=== PATIENT | female | born 1935 | race Caucasian/White ===

== ENCOUNTER 2019-06-30 13:59 | Inpatient (IN) | payer MEDICARE, OTHER, SELFPAY ==
[2019-06-30] VITALS (16 sets, daily range): BP systolic 76–126; BP diastolic 36–65; PULSE 48–85; RESP 13–21; TEMP 34.4–34.9; O2SAT 94–100; BMI 22.3
--- NOTE | 2019-06-30 14:05 | ED_ITS ---
Entered by Urmila Hernández, acting as scribe for Shweta Overton MD, [facility] [place] HPI - Altered Mental Status General: Chief Complaint: Altered Mental Status Stated Complaint: abnormal labs Source: EMS Mode of arrival: EMS Limitations: altered mental status History of Present Illness: HPI narrative: 83 yo Female presents to ED from [facility] with complaint of altered mental status. Per retirement, patient has been having increased lethargy. custodial staff reports that the patient had labs done and the patient's sodium level is in the 170s. Pt is end stage dementia and is a DNR. MD complaint: altered mental status and decreased responsiveness Onset (ago): day(s) Consistency of symptoms: Getting Worse Context: unknown Associated symptoms: Reports no associated symptoms Treatments prior to arrival: IV fluid Review of Systems General: Reports: ROS unobtainable due to mental status Const: Reports: other (lethargy) [facility] ED PFSH: Medical History (Updated 06/30/19 @ 23:10 by Shweta Overton MD, [facility] [place]) AMS (altered mental status) Anxiety Atrial septal aneurysm Bipolar disorder CAD (coronary artery disease) CKD (chronic kidney disease) COPD (chronic obstructive pulmonary disease) Dementia Gait disorder GERD (gastroesophageal reflux disease) Humerus fracture Hyperlipidemia Hypertension Hypothyroid Osteoporosis Pulmonary hypertension Subclavian steal syndrome Vitamin D deficiency Surgical History (Updated 06/30/19 @ 20:54 by Kinza Naik MD) History of tonsillectomy Stented coronary artery Family History Other Cancer Diabetes Hypertension Social History Smoking and tobacco status: unknown if ever smoked Physical Exam Const: EXAM LIMITATIONS: altered mental status GENERAL APPEARANCE: lethargic, ill appearing and frail appearing NUTRITIONAL APPEARANCE: underweight ORIENTATION/CONSCIOUSNESS: Yes lethargic HENMT: COMMON NORMALS: normocephalic HEAD & SCALP: normocephalic Neck/C-Spine: OTHER: Neck contracture with her neck turned left Resp: COMMON NORMALS: normal respiratory effort, no use of accessory muscles and clear to auscultation bilaterally AUSCULTATION: clear to auscultation bilaterally Cardio: COMMON NORMALS: regular rhythm, S1 normal heart sound and S2 normal heart sound RATE: bradycardic RHYTHM: regular rhythm HEART SOUNDS: S1 normal and S2 normal Extremity: OTHER: contracture to all upper extremities Neuro: [facility] COM[facility] SCALE: GCS not evaluated COMMON NORMALS: moves all extremities SENSORIUM/ORIENTATION: Yes lethargic OTHER: 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 Naik, Hospitalist. She kindly accepted the patient to her service Time: 19:34 Consultation #2: Discussed with her brother who is her power of assistant district attorney. Explained how sick the patient is and and that she has a high likelihood of passing away due to this illness. Asked what her CODE STATUS is and he confirmed that she is a DNR, however he would still like all interventions prior to cardiac arrest performed for her. This includes pressors, ICU care, antibiotics and other medications to keep her alive. She is however not to have CPR, no intubation, no mechanical ventilation. Time: 14:15 Vital Signs: Vital signs: Vital Signs Temperature 94 F L 06/30/19 21:54 Pulse Rate 66 06/30/19 22:45 Respiratory Rate 14 06/30/19 22:45 Blood Pressure 82/52 06/30/19 22:45 Pulse Oximetry 96 06/30/19 22:45 MDM - Altered Mental Status MDM Narrative: Medical decision making narrative: 83-year-old female patient who is a retirement resident and was brought in today with abnormal labs. Her sodium was about 174, BUN in the 160s, creatinine about 5 in the retirement. She was therefore brought in here because she was altered. Evaluation here showed labs that were similar, patient is severely hyponatremic, with acute kidney injury and severe dehydration. The prognosis is grave. She was given half-normal saline, needed pressors secondary to significant hypotension. She is admitted to the intensive care unit for further evaluation and management Medical Records: Attestation: I reviewed the patient's medical records. Lab Data: Attestation: I reviewed the patient's lab results. Labs: Lab Results 06/30/19 06/30/19 06/30/19 Range/Units 15:39 15:39 15:39 WBC 11.3 H (4.0-10.0) 10^3/ uL RBC 3.65 L (4.1-5.3) 10^6/u L Hgb 11.4 L (11.5-15.3) g/dL Hct 39.3 (37.0-47.0) % MCV 107.7 H (81-99) fL MCH 31.2 (28.0-34.0) pg MCHC 29.0 L (30.0-36.0) g/dL RDW 15.1 (12.1-15.1) % Plt Count 341 (130-400) 10^3/c mm MPV 10.8 H (7.4-10.4) fL Neut % (Auto) 87.4 % Lymph % (Auto) 6.6 % Appling % (Auto) 5.2 % Eos % (Auto) 0.3 % Baso % (Auto) 0.1 % Neut # (Auto) 9.9 H (1.8-7.7) 10^3/u L Lymph # (Auto) 0.7 L (0.8-4.8) 10^3/u L Appling # (Auto) 0.6 (0.2-0.9) 10^3/u L Eos # (Auto) 0.0 (0.0-0.8) 10^3/u L Baso # (Auto) 0.0 (0.0-0.1) 10^3/u L Nucleated RBC % (a uto) 0 % Nucleated RBCs # 0.0 /100WBC Sodium 172 H* (136-145) mmol/L Potassium 4.1 (3.5-5.1) mmol/L Chloride 136 H (98-107) mmol/L Carbon Dioxide 21 L (22-29) mmol/L Anion Gap 19.1 H (5-19) BUN 159 H* (8-23) mg/dL Creatinine 5.9 H* (0.5-0.9) mg/dL Glucose 110 (65-115) mg/dL Calculated Osmolal ity (285-295) mOsm/k g Lactate 1.6 (0.5-2.2) mmol/L Calcium 12.8 H (8.5-10.5) mg/dL Total Bilirubin 0.2 (0.15-1.2) mg/dL AST 12 (0-32) U/L ALT 9 (0-33) U/L Alkaline Phosphata se 93 (35-105) IU/L Total Protein 6.3 L (6.6-8.7) g/dL Albumin 2.6 L (3.5-5.2) g/dL Globulin 3.7 (1.3-4.6) g/dL Urine Color (Yellow) Urine Appearance (CLEAR) Urine pH (5-7) Ur Specific Gravit y (1.005-1.030) Urine Protein (Negative) Urine Glucose (UA) (Normal) Urine Blood (Negative) Urine Nitrate (Negative) Urine Bilirubin (NEGATIVE) Urine Urobilinogen (Negative) mg/dL Ur Leukocyte Mandy ase (Negative) Urine RBC (0-2) /hpf Urine WBC (0-5) /hpf Ur Squamous Epith Cells (0-5) Urine Bacteria (NONE) Urine Mucus 06/30/19 06/30/19 Range/Units 18:10 18:29 WBC (4.0-10.0) 10^3/ uL RBC (4.1-5.3) 10^6/u L Hgb (11.5-15.3) g/dL Hct (37.0-47.0) % MCV (81-99) fL MCH (28.0-34.0) pg MCHC (30.0-36.0) g/dL RDW (12.1-15.1) % Plt Count (130-400) 10^3/c mm MPV (7.4-10.4) fL Neut % (Auto) % Lymph % (Auto) % Appling % (Auto) % Eos % (Auto) % Baso % (Auto) % Neut # (Auto) (1.8-7.7) 10^3/u L Lymph # (Auto) (0.8-4.8) 10^3/u L Appling # (Auto) (0.2-0.9) 10^3/u L Eos # (Auto) (0.0-0.8) 10^3/u L Baso # (Auto) (0.0-0.1) 10^3/u L Nucleated RBC % (a uto) % Nucleated RBCs # /100WBC Sodium 168 H* (136-145) mmol/L Potassium 4.5 (3.5-5.1) mmol/L Chloride 132 H (98-107) mmol/L Carbon Dioxide 21 L (22-29) mmol/L Anion Gap 19.5 H (5-19) BUN 160 H* (8-23) mg/dL Creatinine 5.9 H* (0.5-0.9) mg/dL Glucose 162 H (65-115) mg/dL Calculated Osmolal ity 354 H (285-295) mOsm/k g Lactate (0.5-2.2) mmol/L Calcium 13.0 H (8.5-10.5) mg/dL Total Bilirubin (0.15-1.2) mg/dL AST (0-32) U/L ALT (0-33) U/L Alkaline Phosphata se (35-105) IU/L Total Protein (6.6-8.7) g/dL Albumin (3.5-5.2) g/dL Globulin (1.3-4.6) g/dL Urine Color Yellow (Yellow) Urine Appearance Cloudy (CLEAR) Urine pH 5 (5-7) Ur Specific Gravit y 1.025 (1.005-1.030) Urine Protein 2+ H (Negative) Urine Glucose (UA) Norm (Normal) Urine Blood 2+ H (Negative) Urine Nitrate Negative (Negative) Urine Bilirubin Neg (NEGATIVE) Urine Urobilinogen Norm (Negative) mg/dL Ur Leukocyte Mandy ase 2+ H (Negative) Urine RBC 40-50 H (0-2) /hpf Urine WBC Too numerous to c nt H (0-5) /hpf Ur Squamous Epith Cells 0-4 H (0-5) Urine Bacteria 4+ H (NONE) Urine Mucus Trace Imaging Data^: XR Pelvis: Radiologist's impression: [address] [place] [address] XRay Report Signed Patient: Shannan Meza #: [id number] : 8Acct#:[id number] Age/Sex: 83 / FADM Date: 06/30/19 Loc: ERRoom/Bed: Attending Dr: Ordering Provider/Ordering MD: Shweta Overton MD, [facility] [place] Date of Service: 06/30/19 Procedure(s): XR pelvis 1-2V* 40637 Accession Number(s): [id number] Report Number: [id number] PROCEDURE INFORMATION: Exam: XR Pelvis Exam date and time: 06/30/2019 5:14 PM Age: 83 years old Clinical indication: Device placement; Other: Central line; Additional info: Central line placement TECHNIQUE: Imaging protocol: XR pelvis. Views: 1 or 2 view. COMPARISON: No relevant prior studies available. FINDINGS: Bones/joints: Unremarkable. No acute fracture. Soft tissues: Vascular calcifications are present in the bilateral groin. Calcified fibroid is present in the right upper pelvis measuring 25 mm. There is a vascular catheter on the left side extending into the left iliac. XR/XR pelvis 1-2V* [id number] IMPRESSION: Negative for acute bony abnormalities. Vascular catheter left groin extending to the left iliac. A calcified uterine fibroid Vascular calcifications bilateral groin Dictated By:Polo Tolentino Signed By:Falguni Tolentino Date/Time:06/30/191735 DD/ 35 CT Head: Radiologist's impression: [place] [address] CT Scan Report Signed Patient: Shannan Meza #: [id number] : 1935cct#:[id number] Age/Sex: 83 / FADM Date: 06/30/19 [facility]: Kinza Naik MD Ordering Provider/Ordering MD: Shweta Overton MD, [facility] [place] Date of Service: 06/30/19 Procedure(s): CT head wo con* [id number] Accession Number(s): [id number] Report Number: [id number] PROCEDURE INFORMATION: Exam: CT Head Without Contrast Exam date and time: 06/30/2019 8:31 PM Age: 83 years old Clinical indication: Altered mental status/memory loss; Confusion or disorientation TECHNIQUE: Imaging protocol: Computed tomography of the head without contrast. Total DLP: 882.27 mGy-cm Radiation optimization: All CT scans at this facility use at least one of these dose optimization techniques: automated exposure control; mA and/or kV adjustment per patient size (includes targeted exams where dose is matched to clinical indication); or iterative reconstruction. COMPARISON: CT head wo con* [id number] 10/01/2015 10:56 PM FINDINGS: Brain: No intracranial hemorrhage. Diffuse age related atrophy and patchy decreased attenuation of the periventricular white matter which is nonspecific but compatible with chronic microvascular ischemia. No evidence of territorial infarct. Subcentimeter chronic left basal ganglia lacunar infarcts. No abnormal mass effect or midline shift. No extra-axial fluid collection. Ventricles: Ventriculomegaly in the setting of atrophy. No evidence of acute hydrocephalus. Bones/joints: No acute fracture. Sinuses: Visualized sinuses are unremarkable. No fluid levels. Mastoid air cells: Visualized mastoid air cells are well aerated. Soft tissues: Unremarkable. CT/CT head wo con* [id number] IMPRESSION: 1. No acute findings. 2. Age related atrophy and chronic microvascular ischemic changes. Radiation Dose CTDIVOL = (mGy): DLP = 882.27 (mGy-cm) Dictated By:El Milian MD Signed By:El Milian MDSigned Date/Time:06/30/192099 DD/ 99 CT Abd/Pel: Radiologist's impression: [address] [address] [address] Scan Report Signed Patient: Shannan Meza #: [id number] : 8Acct#:[id number] Age/Sex: 83 / FADM Date: 06/30/19 Loc: ICURoom/Bed: [place] [address]: Kinza Naik MD Ordering Provider/Ordering MD: Shweta Overton MD, [facility] [place] Date of Service: 06/30/19 Procedure(s): CT abdomen pelvis wo con [id number] Accession Number(s): [id number] Report Number: [id number] PROCEDURE INFORMATION: Exam: CT Abdomen And Pelvis Without Contrast Exam date and time: 06/30/2019 8:31 PM Age: 83 years old Clinical indication: Abdominal tenderness; Additional info: Altered mental status TECHNIQUE: Imaging protocol: Computed tomography of the abdomen and pelvis without contrast. Total DLP: 672.63 mGy-cm Radiation optimization: All CT scans at this facility use at least one of these dose optimization techniques: automated exposure control; mA and/or kV adjustment per patient size (includes targeted exams where dose is matched to clinical indication); or iterative reconstruction. COMPARISON: CR XR pelvis 1-2V* [id number] 06/30/2019 5:02 PM FINDINGS: Tubes, catheters and devices: Left femoral central line with tip in the left common iliac vein near the IVC bifurcation. Lungs: Mild bibasilar atelectasis/scarring. Trace layering effusions. Coronary artery calcifications and/or stents. Liver: Unremarkable.. Gallbladder and bile ducts: Normal. No calcified stones. No ductal dilation. Pancreas: Fatty replacement. Spleen: Unremarkable. No splenomegaly. Adrenals: Unremarkable. No mass. Kidneys and ureters: No renal or ureteral calculi. No hydronephrosis. 3 cm exophytic fluid density lesion right lower pole. Stomach and bowel: There is circumferential mural thickening of the rectum with presacral fat stranding. Normal caliber small bowel and colon. Appendix: No evidence of appendicitis. Intraperitoneal space: No free air. No significant fluid collection. Vasculature: Scattered atherosclerotic calcification. No abdominal aortic aneurysm. Lymph nodes: Unremarkable. No enlarged lymph nodes. Bladder: Empty bladder with Bonilla in place. Reproductive: Irregular right adnexal calcification measuring up to 2.5 cm on image 60 series 2 appears to be within the ovary. Bones/joints: Generalized osteopenia. Lumbar degenerative changes. No acute or aggressive osseous lesions. Soft tissues: Unremarkable. CT/CT abdomen pelvis wo con [id number] IMPRESSION: 1. CT limited without contrast. Circumferential mural thickening of the rectum with presacral fat stranding, correlate for non-specific proctitis. 2. Other chronic and incidental findings as described. Radiation Dose CTDIVOL = (mGy): DLP = 672.63 (mGy-cm) Dictated By:El Milian MD Signed By:El Milian MDSigned Date/Time:06/30/192107 DD/ 05 Discharge Plan Discharge Patient Disposition: Admitted As Inpatient Admit Provider: Kinza Naik Clinical Impression: Hypernatremia, Acute kidney injury superimposed on CKD, AMS (altered mental status), Acute dehydration, Urinary tract infection, Acute hypotension Condition: Stable Interventions: ED Discharge Assessment Last Done: 06/30/19 21:32 Discharge Date/Time: 06/30/19 21:32 Coding Level of Care Code ED Paralegal Internship for Chg Fwd Exam Detailed The documentation recorded by the Edgar perez Carmen, accurately reflects the service I personally performed and the decisions made by Tian garcia Adegoke I, MD, [facility] [place] Jun 30, 2019 13:59
[2019-06-30] MEDS: sodium chloride 0.45% 1,000 ML 999 ML IV ×2 (14:38→18:46)
[2019-06-30 15:56] LABS: Basophils % 0.1 %; Eosinophils % 0.3 %; Hematocrit 39.3 % (37.0-47.0); Hemoglobin 11.4 g/dL (11.5-15.3); Lymphocytes # 0.7 10^3/uL (0.8-4.8); Lymphocytes % 6.6 %; Mean Corpuscular Hemoglobin 31.2 pg (28.0-34.0); Mean Corpuscular Volume 107.7 fL (81-99); Mean Platelet Volume 10.8 fL (7.4-10.4); Monocytes # 0.6 10^3/uL (0.2-0.9); Monocytes % 5.2 %; Neutrophils # 9.9 10^3/uL (1.8-7.7); Neutrophils % 87.4 %; Nucleated Red Blood Cells % 0 %; Platelet Count 341 10^3/cmm (130-400); Red Blood Count 3.65 10^6/uL (4.1-5.3); Red Cell Distribution Width 15.1 % (12.1-15.1); White Blood Count 11.3 10^3/uL (4.0-10.0)
[2019-06-30 16:01] LABS: Lactate (Lactic Acid level) 1.6 mmol/L (0.5-2.2)
[2019-06-30 16:02] LABS: Alanine Aminotransferase 9 U/L (0-33); Albumin Level 2.6 g/dL (3.5-5.2); Alkaline Phosphatase 93 IU/L (35-105); Anion Gap 19.1 (5-19); Aspartate Amino Transferase 12 U/L (0-32); Calcium 12.8 mg/dL (8.5-10.5); Carbon Dioxide 21 mmol/L (22-29); Chloride 136 mmol/L (98-107); Globulin 3.7 g/dL (1.3-4.6); Glucose 110 mg/dL (65-115); Potassium 4.1 mmol/L (3.5-5.1); Total Bilirubin 0.2 mg/dL (0.15-1.2); Total Protein 6.3 g/dL (6.6-8.7)
[2019-06-30 16:11] LABS: Blood Urea Nitrogen 159 mg/dL (8-23); Sodium 172 mmol/L (136-145)
--- NOTE | 2019-06-30 17:06 | PC.NURSE ---
portable xray at bedside
--- NOTE | 2019-06-30 17:13 | XRR_ITS ---
PROCEDURE INFORMATION: Exam: XR Pelvis Exam date and time: 06/30/2019 5:14 PM Age: 83 years old Clinical indication: Device placement; Other: Central line; Additional info: Central line placement TECHNIQUE: Imaging protocol: XR pelvis. Views: 1 or 2 view. COMPARISON: No relevant prior studies available. FINDINGS: Bones/joints: Unremarkable. No acute fracture. Soft tissues: Vascular calcifications are present in the bilateral groin. Calcified fibroid is present in the right upper pelvis measuring 25 mm. There is a vascular catheter on the left side extending into the left iliac. XR/XR pelvis 1-2V* [id number] IMPRESSION: Negative for acute bony abnormalities. Vascular catheter left groin extending to the left iliac. A calcified uterine fibroid Vascular calcifications bilateral groin
[2019-06-30 18:18] LABS: Blood Urine 2+ (Negative); Glucose Urine UA Norm (Normal); Protein Urine 2+ (Negative); Specific Gravity, Urine 1.025 (1.005-1.030); Urine Appearance Cloudy (CLEAR); Urine Color Yellow (Yellow); pH Urine 5 (5-7)
[2019-06-30 18:19] LABS: Add Urine Microscopic? YES; Bilirubin Urine Neg (NEGATIVE); Leukocyte Esterase Urine 2+ (Negative); Nitrate Urine Negative (Negative); Urobilinogen Urine Norm (Negative)
[2019-06-30 18:29] LABS: RBC Urine 40-50 /hpf (0-2); Squamous Epithelial Cell Urine 0-4 (0-5); WBC Urine TOO NUMEROUS TO CNT /hpf (0-5)
[2019-06-30 18:30] LABS: Add Urine Culture? Yes; Bacteria Urine 4+; Mucus Urine TRACE
--- NOTE | 2019-06-30 18:48 | PC.NURSE ---
pt oxygen saturation 100%. Supplemental Oxygen decreased to 2L/min
[2019-06-30 18:52] LABS: Anion Gap 19.5 (5-19); Carbon Dioxide 21 mmol/L (22-29); Chloride 132 mmol/L (98-107); Glucose 162 mg/dL (65-115); Potassium 4.5 mmol/L (3.5-5.1)
[2019-06-30 18:59] LABS: Blood Urea Nitrogen 160 mg/dL (8-23); Osmolality Calculated 354 mOsm/kg (285-295); Sodium 168 mmol/L (136-145)
--- NOTE | 2019-06-30 19:05 | PC.NURSE ---
Introduced self to patient and initiated vital signs. Patient presents with no affect and appears to not be in pain at present time. Respirations are even and unlabored. Pt presents to ED due to abnormal lab values. IV observed in left foot and has a central line. Bed left in lowest position in semi-fowlers with side rails up. Will monitor.
--- NOTE | 2019-06-30 19:05 | PC.NURSE ---
Introduced self to patient and initiated vital signs. Patient presents not responding to verbal cues and has no affect at present. NAD at present time at this time. Respirations are even and unlabored. IV observed in left foot and central line in place, both lines flushed for patency. Bed left in lowest position in semi-fowlers with side rails up.
[2019-06-30] MEDS: cefepime 1,000 MG in sodium chloride 0.9% (plus) 50 ML 100 MG IV (19:27)
--- NOTE | 2019-06-30 19:35 | CTR_ITS ---
PROCEDURE INFORMATION: Exam: CT Head Without Contrast Exam date and time: 06/30/2019 8:31 PM Age: 83 years old Clinical indication: Altered mental status/memory loss; Confusion or disorientation TECHNIQUE: Imaging protocol: Computed tomography of the head without contrast. Total DLP: 882.27 mGy-cm Radiation optimization: All CT scans at this facility use at least one of these dose optimization techniques: automated exposure control; mA and/or kV adjustment per patient size (includes targeted exams where dose is matched to clinical indication); or iterative reconstruction. COMPARISON: CT head wo con* [id number] 10/01/2015 10:56 PM FINDINGS: Brain: No intracranial hemorrhage. Diffuse age related atrophy and patchy decreased attenuation of the periventricular white matter which is nonspecific but compatible with chronic microvascular ischemia. No evidence of territorial infarct. Subcentimeter chronic left basal ganglia lacunar infarcts. No abnormal mass effect or midline shift. No extra-axial fluid collection. Ventricles: Ventriculomegaly in the setting of atrophy. No evidence of acute hydrocephalus. Bones/joints: No acute fracture. Sinuses: Visualized sinuses are unremarkable. No fluid levels. Mastoid air cells: Visualized mastoid air cells are well aerated. Soft tissues: Unremarkable. CT/CT head wo con* [id number] IMPRESSION: 1. No acute findings. 2. Age related atrophy and chronic microvascular ischemic changes. Radiation Dose CTDIVOL = (mGy): DLP = 882.27 (mGy-cm)
--- NOTE | 2019-06-30 19:35 | CTR_ITS ---
PROCEDURE INFORMATION: Exam: CT Abdomen And Pelvis Without Contrast Exam date and time: 06/30/2019 8:31 PM Age: 83 years old Clinical indication: Abdominal tenderness; Additional info: Altered mental status TECHNIQUE: Imaging protocol: Computed tomography of the abdomen and pelvis without contrast. Total DLP: 672.63 mGy-cm Radiation optimization: All CT scans at this facility use at least one of these dose optimization techniques: automated exposure control; mA and/or kV adjustment per patient size (includes targeted exams where dose is matched to clinical indication); or iterative reconstruction. COMPARISON: CR XR pelvis 1-2V* [id number] 06/30/2019 5:02 PM FINDINGS: Tubes, catheters and devices: Left femoral central line with tip in the left common iliac vein near the IVC bifurcation. Lungs: Mild bibasilar atelectasis/scarring. Trace layering effusions. Coronary artery calcifications and/or stents. Liver: Unremarkable.. Gallbladder and bile ducts: Normal. No calcified stones. No ductal dilation. Pancreas: Fatty replacement. Spleen: Unremarkable. No splenomegaly. Adrenals: Unremarkable. No mass. Kidneys and ureters: No renal or ureteral calculi. No hydronephrosis. 3 cm exophytic fluid density lesion right lower pole. Stomach and bowel: There is circumferential mural thickening of the rectum with presacral fat stranding. Normal caliber small bowel and colon. Appendix: No evidence of appendicitis. Intraperitoneal space: No free air. No significant fluid collection. Vasculature: Scattered atherosclerotic calcification. No abdominal aortic aneurysm. Lymph nodes: Unremarkable. No enlarged lymph nodes. Bladder: Empty bladder with Bonilla in place. Reproductive: Irregular right adnexal calcification measuring up to 2.5 cm on image 60 series 2 appears to be within the ovary. Bones/joints: Generalized osteopenia. Lumbar degenerative changes. No acute or aggressive osseous lesions. Soft tissues: Unremarkable. CT/CT abdomen pelvis wo con [id number] IMPRESSION: 1. CT limited without contrast. Circumferential mural thickening of the rectum with presacral fat stranding, correlate for non-specific proctitis. 2. Other chronic and incidental findings as described. Radiation Dose CTDIVOL = (mGy): DLP = 672.63 (mGy-cm)
--- NOTE | 2019-06-30 20:46 | P.HP_ITS ---
Providers/Chief Complaint Admitting Physician: Kinza Naik MD Primary Care Provider: Kash Iverson MD Chief Complaint: abnormal labs History of Present Illness History is all obtained by talking to half-way nurse. Patient is completely obtunded and unable to give me any history. Shannan Meza is a 83 year old female with a past medical history of Alzheimer dementia, bipolar disorder with behavioral disturbances, hypertension, past history of CAD with stents in 2007, COPD, pulmonary hypertension, hypothyroidism, CKD who is a half-way resident at [facility]. She was transferred from the facility today after being noted to be more lethargic over the past 2 days. Per discussion with the nurse patient had been eating and drinking less than usual. She is normally able to participate in conversation though she does have some speech delay and it may not always be appropriate conversation, however for the past 2 days she has not been conversing at home and has been difficult to awaken. Over the past 2 days she has not had any p.o. intake. Due to concern for possible UTI, she was given a dose of ceftriaxone today. She has not had any fevers. They have not noted her to be coughing or had any breathing difficulty. There is no report of diarrhea nausea or vomiting. She had been impacted over the past few days and did receive some laxatives which resulted in a bowel movement yesterday. Per EMS report, her blood pressure was 50 systolic while being transported and was started on norepinephrine infusion. Upon arrival to the ER diagnostics are notable for hyponatremia with sodium of 172, WBC count of 11.3, BUN 160, creatinine 5.9(baseline is between 1-1.4 as of October 2018.). Calculated serum osmolality is at 354. Calcium is at 13. Straight cath urine shows negative nitrate, positive leuk esterase and multiple urine WBC. At time of my evaluation she is on norepinephrine infusion at 15 mics per minute. She has received 2 L of IV fluid bolus and is currently running D5 half NS at 150 cc/h. Na has corected from 172 to 168 in 3 hours. Review of Systems General: Reports: ROS unobtainable due to mental status Narrative: Below ROS per discussion with NH staff Const: Denies: fever, chills or body aches Eyes: Denies: change in vision, blurry vision or photophobia ENMT: Denies: throat pain, enlarged tonsils, painful swallowing, hoarseness or nasal congestion Card: Denies: chest pain, palpitations, irregular heart rhythm, edema, swelling of feet/ankles, lightheadedness, pre-syncope, shortness of breath on exertion or shortness of breath when lying down Resp: Denies: shortness of breath, productive cough, non-productive cough, wheezing, stridor, pain on inspiration, change in phlegm color, coughing up bl ood or chest congestion GI: Denies: abdominal pain, nausea, vomiting, vomiting blood, coffee grounds in vomit, difficulty swallowing, heartburn/indigestion, diarrhea, constipation, cramping, change in stool character, blood in stool or black tarry stool : Denies: flank pain, difficulty urinating, painful urination, urinary frequency, urinary urgency, urinary hesitancy or blood in urine Musc: Denies: neck pain, back pain, extremity pain, joint swelling, joint warmth or deformity Neuro: Denies: headache, numbness in extremities, weakness in extremities, changes in sensation, difficulty walking, frequent falls, dizziness, vertigo, behavioral changes, slurred speech or seizure-like activity Psych: Denies: anxiety, depression, suicidal ideation or homicidal ideation Endo: Denies: excessive urination, excessive thirst, tired all the time, cold intolerance or hot flashes Kevan/Lymph: Denies: easy bruising or easy bleeding Medications/Allergies Home Medications Medication Instructions Recorded Confirmed Last Taken Type albuterol sulfate 2.5 mg INHALATION Q4H PRN 06/30/19 06/30/19 Unknown History amlodipine [Norvasc] 10 mg PO DAILY 06/30/19 06/30/19 06/30/19 History aspirin [Aspir-81] 81 mg PO DAILY 06/30/19 06/30/19 06/30/19 History atorvastatin [Lipitor] 20 mg PO BEDTIME 06/30/19 06/30/19 06/28/19 History ceftriaxone See Rx Instructions .ROUTE .COMPLEX 06/30/19 06/30/19 06/30/19 History coenzyme Q10 1 cap PO DAILY 06/30/19 06/30/19 06/30/19 History cyanocobalamin (vitamin B-12) 1,000 mcg PO DAILY 06/30/19 06/30/19 06/30/19 History [Vitamin B-12] ergocalciferol (vitamin D2) 50,000 unit PO Q7D 06/30/19 06/30/19 06/26/19 History [Vitamin D2] ibuprofen 400 mg PO Q4H PRN 06/30/19 06/30/19 Unknown History lisinopril See Rx Instructions .ROUTE .COMPLEX 06/30/19 06/30/19 06/29/19 History magnesium hydroxide [Milk of 30 ml PO DAILY PRN 06/30/19 06/30/19 Unknown History Magnesia] risperidone [Risperdal] 0.5 mg PO TID 06/30/19 06/30/19 06/30/19 History senna 17.2 mg PO BID 06/30/19 06/30/19 06/30/19 History venlafaxine 100 mg PO BID 06/30/19 06/30/19 06/30/19 History Allergies Allergy/AdvReac Type Severity Reaction Status Date / Time adhesive tape Allergy ALGY-Rash Verified 06/09/19 14:37 atenolol Allergy Unknown Verified 06/09/19 14:37 PFSH Acute PFSH: Medical History Anxiety Atrial septal aneurysm Bipolar disorder CAD (coronary artery disease) CKD (chronic kidney disease) COPD (chronic obstructive pulmonary disease) Dementia Gait disorder GERD (gastroesophageal reflux disease) Humerus fracture Hyperlipidemia Hypertension Hypothyroid Osteoporosis Pulmonary hypertension Subclavian steal syndrome Vitamin D deficiency Surgical History (Updated 06/30/19 @ 20:54 by Kinza Naik MD) History of tonsillectomy Stented coronary artery Family History Other Cancer Diabetes Hypertension Social History Smoking and tobacco status: unknown if ever smoked Vitals/I&O/Wt Last Vital Signs Temp 98.5 F 06/30/19 20:00 Pulse 112 H 06/30/19 20:00 Resp 18 06/30/19 20:00 BP 162/92 06/30/19 20:00 Pulse Ox 97 06/30/19 20:00 06/30/19 06/30/19 06/30/19 06:59 14:59 22:59 Intake Total 1069.337 / 1069.337 Balance 1069.337 / 1069.337 Weight last 48 hrs Weight 58.967 kg Physical Exam Narrative: EXAM NARRATIVE: GEN: Obtunded, does not wake to calling name or tapping. CVS: S1S2 N, loud systolic murmur RS: clear to auscultation Abd: Soft, nt/nd , bs+ TIMBER MANAGEMENT SPECIALIST: obtunded EXT: appears dehydrated on exam with dry wrinkled skin, no edema Urinary Catheter Management^: Bonilla: Cath Placed During This Visit: yes Urethral Indwelling: Yes Reason for Continuing Indwelling Catheter: Accurate Measurement of Urinary Output in Critically Ill Patients Urinary Catheter Date of Insertion: 06/30/19 Urinary Catheter Time of Insertion: 17:58 Data : 06/30/19 15:39 06/30/19 18:29 A&P Assessment and plan (1) Hypernatremia: Status: Acute Code(s): E87.0 - Hyperosmolality and hypernatremia (2) COPD (chronic obstructive pulmonary disease): Status: Acute Code(s): J44.9 - Chronic obstructive pulmonary disease, unspecified (3) Hypothyroid: Status: Acute Code(s): E03.9 - Hypothyroidism, unspecified (4) Acute kidney injury superimposed on CKD: Status: Acute Code(s): N17.9 - Acute kidney failure, unspecified; N18.9 - Chronic kidney disease, unspecified (5) Pulmonary hypertension: Status: Acute Code(s): I27.20 - Pulmonary hypertension, unspecified (6) Dementia: Status: Acute Code(s): F03.90 - Unspecified dementia without behavioral disturbance (7) Bipolar disorder: Status: Acute Code(s): F31.9 - Bipolar disorder, unspecified (8) AMS (altered mental status): Status: Acute Code(s): R41.82 - Altered mental status, unspecified Additional A&P Information Admit to ICU in view of hypernatremia Overall impression is that of severe dehydration due to poor intake and AMS leading up to LUKE and hypernatremia. 1. Hypernatremia Total calculated water deficit ~ 5L Na currently correcting D5 1/2 NS, will continue same and trend every 4 hrs Goal correction would be 12 mmol over 24 hrs, avoid more rapid correction to minimize risk of demyelination Cause likelyo be dehydration due to poor po intake and AMS patient has advanced directive stating she would not want CPR, mechanical ventilation or prolonged feeding. This was discussed with her brother Chapito Claire who states that with regards to NG tube placement, she would not have wanted it placed for nutrition purposes but okay to do so if temporary measure to give her free water to correct hyper natremia.. We will try to avoid this as much as possible, however if the hypernatremia does not correct with IV fluids alone, may need placement of NGT with free water boluses. 2. AMS secondary to hypernatremia, management as above Over the past 2 days, half-way nurse reports that patient has been more withdrawn and lethargic. Her UA is consistent with ongoing UTI. She has received ceftriaxone empirically at the half-way. 7 sepsis cannot be ruled out as a cause of altered mental status and resultant poor p.o. intake, will cover her empirically with antibiotics for now. Urine culture has been sent. Previous cxs with E.coli s/t most abx except fluoroquinolones. Blood culture ordered CT head is negative for any acute intracranial abnormalities Check TSH given history of hypothyroidism 3. Shock/ Hypotension May be secondary to volume depletion from dehydration versus sepsis. Empiric antimicrobial coverage with Zosyn for now. to be narrowed based on cx results Pressor requirement currently trending up, will use isotonic fluid boluses intermittently. continue levophed and titrate to MAP >65mmhg 4. LUKE on CKD likely 2/2 dehydration NSAIDs and lisinopril noted on home medication list, unsure if patient was taking it Hold all home medications for now since patient is obtunded 5. Dementia, bipolar disorder: does not ambulate at baseline. Usually conversant though out of context, confused at baseline. DVT ppx: heparin DNR/DNI, okay for pressors, lines, medical management. NGT only for water boluses if needed, no nutrition. Attestations Medical Necessity Statement*: > 2Mn admission for circulatory shock, hypernatremia and LUKE Coding Level of Care Code Acute Set Designer for [facility] Diagnoses Hypernatremia E87.0 COPD (chronic obstructive pulmonary disease) J44.9 Hypothyroid E03.9 Acute kidney injury superimposed on CKD N17.9; N18.9 Pulmonary hypertension I27.20 Dementia F03.90 Bipolar disorder F31.9 AMS (altered mental status) R41.82
--- NOTE | 2019-06-30 21:44 | XR_ITS ---
WS: [id number] XR chest 1V portable [id number] REASON FOR EXAM: r/o pneumonia FINDINGS: Comparison: October 24, 2018. There is skin fold seen in the right upper chest but no pneumonia. The hilum and apices are normal. There is no pneumonia, pleural effusion, pulmonary edema, or mass effect. The hilum and apices normal A scoliotic curve convex to the right. The left shoulder shows calcification along the insertion of the supraspinatus tendon. XR/XR chest 1V portable [id number] IMPRESSION: No evidence of acute cardiopulmonary changes.
[2019-06-30] MEDS: heparin 5,000 unit/mL INJ 1 mL 5000 UNIT SUBCUT (22:18)
[2019-06-30] MEDS: dextrose 5%-sod chloride 0.45% 1,000 ML 150 ML IV (22:19)
[2019-06-30] MEDS: cefTRIAXone 1,000 MG in sodium chloride 0.9% (plus) 50 ML 100 MG IV (22:20)
--- NOTE | 2019-06-30 22:54 | PC.PHAR ---
Zosyn is dosed at 2.25gm IVPB every 8 hours due to creatinine clearance of 5.9. Each dose is to be infused over 4 hours per extended dosing protocol.
[2019-06-30 23:18] LABS: Magnesium 3.7 mg/dL (1.7-2.3)
[2019-06-30 23:20] LABS: Anion Gap 22.6 (5-19); Calcium 12.3 mg/dL (8.5-10.5); Carbon Dioxide 18 mmol/L (22-29); Chloride 127 mmol/L (98-107); Glucose 255 mg/dL (65-115); Potassium 4.6 mmol/L (3.5-5.1)
[2019-06-30 23:33] LABS: Sodium 163 mmol/L (136-145)
[2019-06-30 23:34] LABS: Blood Urea Nitrogen 155 mg/dL (8-23); Osmolality Calculated 349 mOsm/kg (285-295); Phosphorus 8.2 mg/dL (2.5-4.5)
[2019-06-30] MEDS: sodium chloride 0.9% 500 ML 999 ML IV (23:52)
[2019-07-01] VITALS (17 sets, daily range): BP systolic 86–126; BP diastolic 46–70; PULSE 46–557; RESP 12–32; TEMP 34.8–36.9; O2SAT 94–100
--- NOTE | 2019-07-01 01:28 | PC.NURSE ---
Received from the ER per char with O2 2lpm nc and Levophed gtt infusing at 15 mcg/min to CVL in left groin. Pt is semi responsive and nonverbal and does not to follow commands.Pt noted to have DTIs to right buttock and right heel and stage 2 decub to sacrum. Also noted that patient has a rectal temp of 94.0 F, hospitalist aware and will attempt passive warming measures for now due to continued hypotension
[2019-07-01 02:18] LABS: Anion Gap 21.9 (5-19); Calcium 11.5 mg/dL (8.5-10.5); Carbon Dioxide 17 mmol/L (22-29); Chloride 126 mmol/L (98-107); Glucose 293 mg/dL (65-115); Potassium 4.9 mmol/L (3.5-5.1); Sodium 160 mmol/L (136-145)
[2019-07-01 02:51] LABS: Blood Urea Nitrogen 126 mg/dL (8-23); Osmolality Calculated 343 mOsm/kg (285-295)
[2019-07-01 03:40] LABS: Urine Random Sodium 44 mmol/L
[2019-07-01 03:41] LABS: Add Urine Microscopic? YES; Bilirubin Urine Neg (NEGATIVE); Blood Urine 3+ (Negative); Glucose Urine UA Norm (Normal); Ketones Urine Negative (Negative); Leukocyte Esterase Urine 2+ (Negative); Nitrate Urine Negative (Negative); Protein Urine 2+ (Negative); Urine Appearance SL Hazy (CLEAR); Urine Color Yellow (Yellow); Urobilinogen Urine Norm (Negative); pH Urine 5 (5-7)
[2019-07-01] MEDS: sodium chloride 0.9% 1,000 ML 75 ML IV (04:03)
[2019-07-01 06:02] LABS: Basophils % 0.1 %; Eosinophils % 0.2 %; Hematocrit 32.4 % (37.0-47.0); Hemoglobin 9.4 g/dL (11.5-15.3); Lymphocytes # 0.7 10^3/uL (0.8-4.8); Lymphocytes % 5.4 %; Mean Corpuscular Hemoglobin 32.4 pg (28.0-34.0); Mean Corpuscular Volume 111.7 fL (81-99); Mean Platelet Volume 10.2 fL (7.4-10.4); Monocytes # 0.5 10^3/uL (0.2-0.9); Monocytes % 3.6 %; Neutrophils # 11.4 10^3/uL (1.8-7.7); Neutrophils % 90.2 %; Nucleated Red Blood Cells % 0.2 %; Platelet Count 328 10^3/cmm (130-400); Red Cell Distribution Width 14.6 % (12.1-15.1); White Blood Count 12.6 10^3/uL (4.0-10.0)
[2019-07-01 06:23] LABS: Calcium 11.6 mg/dL (8.5-10.5); Carbon Dioxide 19 mmol/L (22-29); Chloride 126 mmol/L (98-107); Glucose 202 mg/dL (65-115)
[2019-07-01 06:33] LABS: Blood Urea Nitrogen 121 mg/dL (8-23); Osmolality Calculated 340 mOsm/kg (285-295); Sodium 161 mmol/L (136-145)
[2019-07-01] MEDS: piperacillin-tazobactam 2.25 GM in sodium chloride 0.9% (plus) 50 ML IV ×3 (07:29→22:07)
--- NOTE | 2019-07-01 10:12 | PM.PN ---
Subjective Subjective: Interval history: Patient admitted overnight. H&P and labs noted. Today morning patient seen at 10 AM. Patient on evaluation is on Levophed at 4 mics with a mean arterial pressures around 70 mmHg with normal saline running at 75 cc/h due to mild overcorrection overnight. Patient till now since 6 AM has had 200 cc of urine output. Vitals/I&O/Wt Last Vital Signs Temp 96.8 F L 07/01/19 06:00 Pulse 557 H 07/01/19 07:45 Resp 16 07/01/19 07:45 BP 111/59 07/01/19 06:00 Pulse Ox 97 07/01/19 07:45 06/30/19 07/01/19 07/01/19 22:59 06:59 14:59 Intake Total 2354.000 / 2354.000 1519.000 / 3873.000 Output Total 60 / 60 Balance 2354.000 / 2354.000 1459.000 / 3813.000 Weight last 48 hrs Weight 55.837 kg Weight 58.967 kg Physical Exam Narrative: EXAM NARRATIVE: General: Somnolent, HEENT: PERRLA, pupils bilaterally equal and reactive Chest: Normal vesicular breath sounds, no added sounds, equal good air entry bilaterally CVS: S1-S2 regular, no murmurs, no tachycardia, no gallops, no rubs Abdomen: Soft, nontender, no organomegaly, bowel sounds present Neuro: Somnolent. GCS: E1M2V2 protecting airway, moaning to physical stimuli. Urinary Catheter Management^: Bonilla: Cath Placed During This Visit: yes Urethral Indwelling: Yes Reason for Continuing Indwelling Catheter: Accurate Measurement of Urinary Output in Critically Ill Patients Urinary Catheter Date of Insertion: 06/30/19 Urinary Catheter Time of Insertion: 17:58 Data : 07/01/19 05:33 07/01/19 14:08 Micro: Microbiology 06/30/19 22:40 Blood Culture - Preliminary Blood SPECIMEN COLLECTED 06/30/19 22:00 Blood Culture - Preliminary Blood SPECIMEN COLLECTED A&P Assessment and plan (1) Hypernatremia: Status: Acute Code(s): E87.0 - Hyperosmolality and hypernatremia (2) COPD (chronic obstructive pulmonary disease): Status: Acute Code(s): J44.9 - Chronic obstructive pulmonary disease, unspecified (3) Hypothyroid: Status: Acute Code(s): E03.9 - Hypothyroidism, unspecified (4) Acute kidney injury superimposed on CKD: Status: Acute Code(s): N17.9 - Acute kidney failure, unspecified; N18.9 - Chronic kidney disease, unspecified (5) Pulmonary hypertension: Status: Acute Code(s): I27.20 - Pulmonary hypertension, unspecified (6) Dementia: Status: Acute Code(s): F03.90 - Unspecified dementia without behavioral disturbance (7) Bipolar disorder: Status: Acute Code(s): F31.9 - Bipolar disorder, unspecified (8) AMS (altered mental status): Status: Acute Qualifiers: Altered mental status type: somnolence Qualified Code(s): R40.0 - Somnolence Code(s): R41.82 - Altered mental status, unspecified Additional A&P Information AMS Most likely secondary to hypernatremia with underlying Sepsis most likley from UTI. Over the past 2 days, longterm nurse reports that patient has been more withdrawn and lethargic. Her UA is consistent with ongoing UTI. She has received ceftriaxone empirically at the longterm. UA concerning for UTI. Cxr negative for infiltrate and CT abd negative for any obstructive uropathy. C/w Zosyn. Will de escalate as per BCx and Ucx results. Wean levophed keeping MAP over 60 mmhg. Check procal. TSH WNL Hypernatremia Total calculated water deficit ~ 4L Na today morning 162. Correction 10 meq in 20 hrs. Goal correction would be 12 mmol over 24 hrs, avoid more rapid correction to minimize risk of demyelination For now will switch to D5NS. Check BMP Q4h for now. Will switch to Q6h in evening. Shock/ Hypotension: Secondary to volume depletion from dehydration versus sepsis. Empiric antimicrobial coverage with Zosyn for now. to be narrowed based on cx results Pressor requirement currently trending up, will use isotonic fluid boluses intermittently. continue levophed and titrate to MAP >65mmhg LUKE on CKD likely 2/2 dehydration NSAIDs and lisinopril noted on home medication list, unsure if patient was taking it Hold all home medications for now since patient is obtunded. Renal Usg. Urine studies appreciated. Will add U franceses Patient has advanced directive stating she would not want CPR, mechanical ventilation or prolonged feeding. This was discussed with her brother Chapito Claire who states that with regards to NG tube placement, she would not have wanted it placed for nutrition purposes but okay to do so if temporary measure to give her free water to correct hypernatremia.. We will try to avoid this as much as possible, however if the hypernatremia does not correct with IV fluids alone, may need placement of NGT with free water boluses. DVT ppx: heparin DNR/DNI, okay for pressors, lines, medical management. NGT only for water boluses if needed, no nutrition. Attestations Medical Necessity Statement*: Septic shock with severe hypernatremia Critical Care Time: AMS, Aeptic shock, hypernatremia Critical Care Time (min): 70 Coding Level of Care Code Acute Burning Supervisor for [facility] Fwd Diagnoses Hypernatremia E87.0 COPD (chronic obstructive pulmonary disease) J44.9 Hypothyroid E03.9 Acute kidney injury superimposed on CKD N17.9; N18.9 Pulmonary hypertension I27.20 Dementia F03.90 Bipolar disorder F31.9 AMS (altered mental status) R40.0 Altered mental status type: somnolence
[2019-07-01] MEDS: heparin 5,000 unit/mL INJ 1 mL 5000 UNIT SUBCUT ×2 (11:07→20:59)
[2019-07-01 11:11] LABS: Procalcitonin 0.43 ng/mL (0-0.5)
[2019-07-01 11:22] LABS: Anion Gap 19.3 (5-19); Calcium 11.7 mg/dL (8.5-10.5); Carbon Dioxide 18 mmol/L (22-29); Chloride 129 mmol/L (98-107); Glucose 114 mg/dL (65-115); Iron 57 ug/dL (37-145); Percent Saturation 50.8 % (20-50); Potassium 4.3 mmol/L (3.5-5.1); Total Iron Binding Capacity 112 mcg/dl; Unsaturated Iron Binding 55 ug/dL (112-347)
[2019-07-01 11:56] LABS: Blood Urea Nitrogen 116 mg/dL (8-23); Osmolality Calculated 337 mOsm/kg (285-295); Sodium 162 mmol/L (136-145)
--- NOTE | 2019-07-01 12:20 | PC.NURSE ---
Notified Dr White of Labs, Sodium of 162 and BUN of 116. New orders written.
[2019-07-01] MEDS: dextrose 5%-sod chloride 0.9% 1,000 ML 125 ML IV (14:15)
[2019-07-01 14:35] LABS: Anion Gap 15.9 (5-19); Calcium 11.4 mg/dL (8.5-10.5); Carbon Dioxide 19 mmol/L (22-29); Chloride 128 mmol/L (98-107); Glucose 102 mg/dL (65-115); Potassium 3.9 mmol/L (3.5-5.1); Sodium 159 mmol/L (136-145)
[2019-07-01 14:43] LABS: Osmolality Calculated 332 mOsm/kg (285-295)
[2019-07-01 14:45] LABS: Blood Urea Nitrogen 142 mg/dL (8-23)
--- NOTE | 2019-07-01 14:53 | PC.NURSE ---
Reported critical BUN of 147 to primary nurse, BECCA Partida.
--- NOTE | 2019-07-01 14:58 | PC.NURSE ---
Notified dr andrews of critical lab of BUN 142, of sodium 159 and creatine of 5.0 with 350ml urine output since 6am.
--- NOTE | 2019-07-01 15:40 | US_ITS ---
WS: [id number] RENAL ULTRASOUND REASON FOR EXAM: CKD with renal failure TECHNIQUE: Grayscale and Doppler ultrasound examination of the kidneys. FINDINGS: Right kidney: Right kidney measures 7.8 cm x 5.7 cm x 4.7 cm. The cortex measured 1.51 cm. Left kidney: Left kidney measures 8.6 cm x 4.5 cm x 4.8 cm. The cortex measured 1.37 cm. The urinary bladder was contracted and empty. The gallbladder is sonolucent there is no stones edified. US/US renal BI* [id number] IMPRESSION: Small kidneys with normal contour and cortex.
[2019-07-01] MEDS: dextrose 5%-sod chloride 0.45% 1,000 ML 125 ML IV (16:14)
[2019-07-01 17:34] LABS: Potassium, Radom Urine 18 mmol/L; Urine Random Chloride 47 mmol/L; Urine Random Sodium 62 mmol/L
[2019-07-01 19:41] LABS: Calcium 11.2 mg/dL (8.5-10.5); Carbon Dioxide 19 mmol/L (22-29); Chloride 130 mmol/L (98-107); Glucose 158 mg/dL (65-115); Phosphorus 5.8 mg/dL (2.5-4.5)
[2019-07-01 19:44] LABS: Blood Urea Nitrogen 108 mg/dL (8-23); Sodium 163 mmol/L (136-145)
[2019-07-02] VITALS (14 sets, daily range): BP systolic 92–132; BP diastolic 50–72; PULSE 47–86; RESP 14–19; TEMP 36.3–36.6; O2SAT 91–100
[2019-07-02 01:00] LABS: Albumin Level 2.1 g/dL (3.5-5.2); Anion Gap 14.5 (5-19); Calcium 10.8 mg/dL (8.5-10.5); Carbon Dioxide 19 mmol/L (22-29); Chloride 129 mmol/L (98-107); Glucose 223 mg/dL (65-115); Phosphorus 5.2 mg/dL (2.5-4.5); Potassium 3.5 mmol/L (3.5-5.1); Sodium 159 mmol/L (136-145)
[2019-07-02] MEDS: dextrose 5%-sod chloride 0.45% 1,000 ML 125 ML IV ×2 (01:06→09:59)
[2019-07-02 01:10] LABS: Blood Urea Nitrogen 102 mg/dL (8-23)
[2019-07-02 04:53] LABS: Basophils % 0.1 %; Eosinophils # 0.2 10^3/uL (0.0-0.8); Hematocrit 30.3 % (37.0-47.0); Hemoglobin 8.9 g/dL (11.5-15.3); Lymphocytes # 0.5 10^3/uL (0.8-4.8); Lymphocytes % 4.9 %; Mean Corpuscular HGB Conc 29.4 g/dL (30.0-36.0); Mean Corpuscular Hemoglobin 32.6 pg (28.0-34.0); Mean Platelet Volume 10.4 fL (7.4-10.4); Monocytes # 0.4 10^3/uL (0.2-0.9); Monocytes % 4.4 %; Neutrophils # 8.3 10^3/uL (1.8-7.7); Neutrophils % 88.1 %; Nucleated Red Blood Cells % 0 %; Platelet Count 261 10^3/cmm (130-400); Red Blood Count 2.73 10^6/uL (4.1-5.3); Red Cell Distribution Width 14.6 % (12.1-15.1); White Blood Count 9.4 10^3/uL (4.0-10.0)
[2019-07-02 05:16] LABS: Alanine Aminotransferase 8 U/L (0-33); Albumin Level 2.1 g/dL (3.5-5.2); Alkaline Phosphatase 78 IU/L (35-105); Anion Gap 16.4 (5-19); Aspartate Amino Transferase 10 U/L (0-32); Calcium 11.1 mg/dL (8.5-10.5); Carbon Dioxide 18 mmol/L (22-29); Chloride 128 mmol/L (98-107); Globulin 3.3 g/dL (1.3-4.6); Glucose 193 mg/dL (65-115); Potassium 3.4 mmol/L (3.5-5.1); Sodium 159 mmol/L (136-145); Total Bilirubin 0.2 mg/dL (0.15-1.2); Total Protein 5.4 g/dL (6.6-8.7)
[2019-07-02 05:21] LABS: Blood Urea Nitrogen 101 mg/dL (8-23)
[2019-07-02] MEDS: piperacillin-tazobactam 2.25 GM in sodium chloride 0.9% (plus) 50 ML IV (06:02)
[2019-07-02 07:46] LABS: Albumin Level 2.1 g/dL (3.5-5.2); Anion Gap 15.5 (5-19); Calcium 11.1 mg/dL (8.5-10.5); Carbon Dioxide 20 mmol/L (22-29); Chloride 127 mmol/L (98-107); Glucose 153 mg/dL (65-115); Phosphorus 5.1 mg/dL (2.5-4.5); Potassium 3.5 mmol/L (3.5-5.1); Sodium 159 mmol/L (136-145)
[2019-07-02 08:05] LABS: Blood Urea Nitrogen 98 mg/dL (8-23)
--- NOTE | 2019-07-02 09:36 | XR_ITS ---
WS: [id number] XR chest 1V portable [id number] REASON FOR EXAM: ng tube placement FINDINGS: A nasogastric tube is seen in the body of the stomach. The heart is not enlarged there is arteriosclerotic changes seen. The lung silva are adequately aerated. XR/XR chest 1V portable [id number] IMPRESSION: Feeding tube the tip is in the mid body of the stomach.
--- NOTE | 2019-07-02 09:41 | PM.PN ---
Subjective Subjective: Interval history: Doing slightly better mentally. Off Levophed since yesterday afternoon. Labs reviewed. Urine output improved. Discussed in detail regarding goals of care with her niece who is the daughter of her son who is the power of commercial litigation attorney. She states her baseline mentation is poor as well. Vitals/I&O/Wt Last Vital Signs Temp 97.5 F L 07/02/19 02:00 Pulse 54 L 07/02/19 08:11 Resp 16 07/02/19 08:11 BP 115/53 07/02/19 06:00 Pulse Ox 97 07/02/19 08:11 07/01/19 07/02/19 07/02/19 22:59 06:59 14:59 Intake Total 997.5 / 2434.998 1147.417 / 2351.500 Output Total 750 / 810 450 / 1260 Balance 247.5 / 371.083 720.417 / 1091.500 Weight last 48 hrs Weight 55.837 kg Weight 58.967 kg Physical Exam Narrative: EXAM NARRATIVE: General: Somnolent, but arousable to morning. HEENT: PERRLA, pupils bilaterally equal and reactive Chest: Normal vesicular breath sounds, no added sounds, equal good air entry bilaterally CVS: S1-S2 regular, no murmurs, no tachycardia, no gallops, no rubs Abdomen: Soft, nontender, no organomegaly, bowel sounds present Neuro: Somnolent. GCS: E4 M2 V2 protecting airway, moaning to physical stimuli. Not following simple commands Urinary Catheter Management^: Bonilla: Cath Placed During This Visit: yes Urethral Indwelling: Yes Reason for Continuing Indwelling Catheter: Accurate Measurement of Urinary Output in Critically Ill Patients Urinary Catheter Date of Insertion: 06/30/19 Urinary Catheter Time of Insertion: 17:58 Data : 07/02/19 04:26 07/02/19 07:03 Micro: Microbiology 06/30/19 22:40 Blood Culture - Preliminary Blood NEGATIVE TO DATE 06/30/19 22:00 Blood Culture - Preliminary Blood NEGATIVE TO DATE A&P Assessment and plan (1) AMS (altered mental status): Status: Acute Qualifiers: Altered mental status type: somnolence Qualified Code(s): R40.0 - Somnolence Code(s): R41.82 - Altered mental status, unspecified (2) Hypernatremia: Status: Acute Code(s): E87.0 - Hyperosmolality and hypernatremia (3) COPD (chronic obstructive pulmonary disease): Status: Acute Code(s): J44.9 - Chronic obstructive pulmonary disease, unspecified (4) Hypothyroid: Status: Acute Code(s): E03.9 - Hypothyroidism, unspecified (5) Acute kidney injury superimposed on CKD: Status: Acute Code(s): N17.9 - Acute kidney failure, unspecified; N18.9 - Chronic kidney disease, unspecified (6) Pulmonary hypertension: Status: Acute Code(s): I27.20 - Pulmonary hypertension, unspecified (7) Dementia: Status: Acute Code(s): F03.90 - Unspecified dementia without behavioral disturbance (8) Bipolar disorder: Status: Acute Code(s): F31.9 - Bipolar disorder, unspecified Additional A&P Information AMS Most likely secondary to hypernatremia with underlying Sepsis most likley from UTI. Over the past 2 days, skilled nursing nurse reports that patient has been more withdrawn and lethargic. Her UA is consistent with ongoing UTI. She has received ceftriaxone empirically at the skilled nursing. UA concerning for UTI. Cxr negative for infiltrate and CT abd negative for any obstructive uropathy. C/w Zosyn. At renal dose. Will de escalate as per BCx and Ucx results. Keep mean arterial pressure over 60 mmHg. Hypernatremia Total calculated water deficit ~ 4L Na today morning 159. Correction appropriate to the number of hours. As patient is having hyper chloremia with D5 half NS and the sodium improvement is slow now given the target we will try to use patient's got for further improvement along with IV fluids. Plan to have an NG tube placed. After that we will try for free water flushes to 50 cc every 4 hours. Check renal panel at 1 PM can plan to do every 8 hours after that. D5 half NS at 125 cc/h. Shock/ Hypotension: Resolved. Secondary to volume depletion from dehydration versus sepsis. Empiric antimicrobial coverage with Zosyn for now. to be narrowed based on cx results LUKE on CKD likely 2/2 dehydration NSAIDs and lisinopril noted on home medication list, unsure if patient was taking it Hold all home medications for now since patient is obtunded. Patient has advanced directive stating she would not want CPR, mechanical ventilation or prolonged feeding. This was discussed with her brother Chapito Claire on admission who states that with regards to NG tube placement, she would not have wanted it placed for nutrition purposes but okay to do so if temporary measure to give her free water to correct hypernatremia. We will try to avoid this as much as possible, however if the hypernatremia does not correct with IV fluids alone, may need placement of NGT with free water boluses. Goals of care discussed with patient's niece who is also nurse at NICU at other hospital. She is daughter of patient's power of commercial litigation attorney. She will discuss with her father regarding further goals of care and will get back to us. She verbalizes and understands that patient at baseline is a high risk of developing severe dehydration and hypernatremia again because of severe poor oral intake and has a poor baseline lifestyle. DVT ppx: heparin DNR/DNI, okay for pressors, lines, medical management. NGT only for water boluses if needed, no nutrition. Attestations Medical Necessity Statement*: Altered mental status because of hypernatremia and septic shock Time Spent in Patient Care: 16 - 35 minutes Coding Level of Care Code Acute Wad Blanking Press Adjuster for g Fwd Diagnoses AMS (altered mental status) R40.0 Altered mental status type: somnolence Hypernatremia E87.0 COPD (chronic obstructive pulmonary disease) J44.9 Hypothyroid E03.9 Acute kidney injury superimposed on CKD N17.9; N18.9 Pulmonary hypertension I27.20 Dementia F03.90 Bipolar disorder F31.9
[2019-07-02] MEDS: heparin 5,000 unit/mL INJ 1 mL 5000 UNIT SUBCUT (10:00)
--- NOTE | 2019-07-02 10:30 | PC.CHAP ---
Pastoral Care Encounter/Spiritual Assessment Type of Contact [] Declined heat treat supervisor visit [] Patient/Family/Request visit [] Outpatient visit [] Follow-up visit [] Physician referral [] Code/Alert [x] Routine visit [] Staff referral [] Actively dying [x] Patient sleeping [] Family support [] [] Out of room [] Palliative care [] [] Receiving care in room [] Pre-surgical visit [] Trauma [] Long length of stay [x] ICU visit [] Other: Relational/Emotional Strength [] Patient feels connected with others/family/visitors/staff [] Distress [] Loneliness/isolation [] Abandonment Spirituality of Patient [] Person of [place] [] Attends Congregational of their [place] [] Believes in Prayer [] Reads Bible or Church materials [] There are Spiritual issues to be addressed Guidance Director Interventions [] Prayer [] Active listening [] Non-anxious presence [] Spiritual/emotional support [] Crisis/trauma care [] Spiritual counseling [] Bereavement support [] Provided bereavement packet [] Provided Bible/devotional materials [] Provided toy/stuffed animal, coloring book to patient or family member [] Provided Communion [] Anointing/[place] [] Salvation [x] Completed spiritual assessment [] Other: Impact on Illness or Injury [] Angry [] Fearful [] Anxious [] Often cries [] Exhaustion [] Unable to work [] Unable to attend hoahaoism [] Unable to walk/stand [] Unable to read [] Unable to drive [] Unable to eat/drink [] Unable to sleep [] Unable to be with family [] Patient intubated [] Other: Summary Time spent with patient
[2019-07-02 12:11] LABS: Osmolality Urine 414 mOsm/kg (50-1200)
--- NOTE | 2019-07-02 14:21 | PM.EVENT ---
Event Note Event Note: Spoke with . Justus Claire who is power of [place] attorney to Ms. Shannan Meza. I have updated him regarding patient's medical status. We discussed in detail regarding the cause of her hyponatremia and my concerns that even if hyponatremia is treated right now given her poor oral intake due to advanced dementia and confusion it is inevitable that going down the line most likely within the next few months she might develop hypernatremia and LUKE again.. He states Ms. Meaz had made it very clear to him in the past that she would not want to live with artificial nutrition, that she is DNR/DNI and she would not want to have kind of lifestyle which she is having right now unfortunately due to her advanced dementia. He also stated at present based on her medical and mental status it would be best if she will be transitioned over to hospice and comfort care. Plan: We will transition patient to comfort care measures. Morphine 1 mg IV 4 hours as needed. We will discontinue all lab work, antibiotics, frequent vital checks, NG tube. We will discuss with gait coordination team for transition to hospice/comfort care at shelter. Event Notes Attestations Time Spent in Patient Care: 16 - 35 minutes
--- NOTE | 2019-07-02 14:30 | PC.NURSE ---
dr cruz spoke with OA regarding plan of care. Decision made to make comfort care with hospice consult. Orders given. Ng tube removed without difficulty.
[2019-07-03] VITALS (9 sets, daily range): BP systolic 81–132; BP diastolic 50–75; PULSE 56–84; RESP 14–22; TEMP 36.3; O2SAT 96–100
--- NOTE | 2019-07-03 10:03 | PM.DCS ---
Discharge Providers Date of Admission: 06/30/19 20:22 Date of Discharge: July 03, 2019 Attending Provider at Admission: Kinza Naik MD Attending Provider at Discharge: Josue Dugan MD Consults: Hospice Primary Care Provider: Kash Iverson MD Diagnoses at Discharge Discharge Diagnosis (1) AMS (altered mental status): Status: Acute Qualifiers: Altered mental status type: somnolence Qualified Code(s): R40.0 - Somnolence (2) Hypernatremia: Status: Acute (3) COPD (chronic obstructive pulmonary disease): Status: Acute (4) Hypothyroid: Status: Acute (5) Acute kidney injury superimposed on CKD: Status: Acute (6) Pulmonary hypertension: Status: Acute (7) Dementia: Status: Acute (8) Bipolar disorder: Status: Acute Reason for Visit Reason for Visit: Reason For Visit: abnormal labs Hospital Course Discharge Summary: Shannan Meza is a 83 year old female with a past medical history of Alzheimer dementia, bipolar disorder with behavioral disturbances, hypertension, past history of CAD with stents in 2007, COPD, pulmonary hypertension, hypothyroidism, CKD who is a senior living resident at [facility]. She was transferred from the facility today after being noted to be more lethargic over the past 2 days. Upon arrival to the ER diagnostics are notable for hypernatremia with sodium of 172, WBC count of 11.3, BUN 160, creatinine 5.9(baseline is between 1-1.4 as of October 2018.). Calculated serum osmolality is at 354. Calcium is at 13. Straight cath urine shows negative nitrate, positive leuk esterase and multiple urine WBC. Patient was admitted to to the ICU on June 30 because of severe hypernatremia and shock due to hypovolemia and possible sepsis because of UTI. She was started on treatment with fluids appropriately for her hypernatremia and pressors for hypotension. Her creatinine started improving gradually and her sodium also trending side trending down. Patient's mental status remained the same. She was started on broad-spectrum IV antibiotics for UTI. Given her baseline poor mental status and poor baseline functional capacity goals of care were discussed with the family as it is quite possible after correction of hypernatremia patient will continue to have poor oral intake causing her to have dehydration, LUKE, hypernatremia again eventually again in few weeks or couple of months. Her brother Mr. Justus Claire who is her POA agreed and verbalized the same concerns and stated that she had verbalized in the past that she would not want to have a life like this and family requested for her to be transitioned over to hospice/comfort care. As per family's request patient was transitioned over to hospice/comfort care and is being discharged in hemodynamically stable condition in a comfortable status. Physical Exam Narrative: EXAM NARRATIVE: General: Somnolent, but arousable to morning. HEENT: PERRLA, pupils bilaterally equal and reactive Chest: Normal vesicular breath sounds, no added sounds, equal good air entry bilaterally CVS: S1-S2 regular, no murmurs, no tachycardia, no gallops, no rubs Abdomen: Soft, nontender, no organomegaly, bowel sounds present Neuro: Somnolent. GCS: E2 M2 V2 protecting airway, moaning to physical stimuli. Not following simple commands Urinary Catheter Management^: Bonilla: Cath Placed During This Visit: yes Urethral Indwelling: Yes Reason for Continuing Indwelling Catheter: Accurate Measurement of Urinary Output in Critically Ill Patients Urinary Catheter Date of Insertion: 06/30/19 Urinary Catheter Time of Insertion: 17:58 Discharge Data Data Completed and Pending: Completed Studies During Hospitalization Category Date Time Status CT abdomen pelvis wo con 01522 Urge nt Cat Scan 06/30/19 19:[address] head wo con* 7 0450 Urgent Cat Scan 06/30/19 19:35 Completed CXRP [XR chest 1V portable 62360] R outine Exams 07/02/19 09:36 Completed XR chest 1V nasrin ble [id number] Routine Exams 06/30/19 21:44 Completed XR pelvis 1-2V* 7 2170 Stat Exams 06/30/19 17:13 Completed US renal BI* [id number] 0 Routine Ultrasound 07/01/19 15:40 Completed Pending at discharge Category Date Time Status Blood Culture Rou ana m Lab 06/30/19 22:40 Results Urine Culture Sta t Lab 06/30/19 18:10 Results Labs from last 24 hours 07/02/19 07/01/19 13:35 00:45 Sodium Cancelled Potassium Cancelled Chloride Cancelled Carbon Dioxide Cancelled Anion Gap Cancelled BUN Cancelled Creatinine Cancelled Glucose Cancelled Calcium Cancelled Phosphorus Cancelled Albumin Cancelled Urine Osmolality 414 Vitals: Last Vital Signs Temp 97.4 F L 07/03/19 06:00 Pulse 60 07/03/19 08:04 Resp 16 07/03/19 08:04 BP 92/50 07/03/19 08:00 Pulse Ox 98 07/03/19 08:04 Discharge Plan Discharge Patient Disposition: Hospice - Home Condition: Stable Prescriptions: Continued Lipitor 20 mg Tablet 20 mg PO BEDTIME RF: 0 albuterol sulfate 2.5 mg /3 mL (0.083 %) Solution For Nebulization 2.5 mg INHALATION Q4H PRN (Reason: UNKNOWN) RF: 0 Vitamin B-12 1,000 mcg Tablet 1,000 mcg PO DAILY RF: 0 Aspir-81 81 mg Tablet,Delayed Release (Dr/Ec) 81 mg PO DAILY RF: 0 Milk of Magnesia 400 mg/5 mL Suspension 30 ml PO DAILY PRN (Reason: Constipation) RF: 0 Norvasc 10 mg Tablet 10 mg PO DAILY RF: 0 ibuprofen 400 mg Tablet 400 mg PO Q4H PRN (Reason: Pain) RF: 0 venlafaxine 50 mg Tablet 100 mg PO BID RF: 0 Vitamin D2 1,250 mcg (50,000 unit) Capsule 50,000 unit PO Q7D RF: 0 Risperdal 0.5 mg Tablet 0.5 mg PO TID RF: 0 senna 8.6 mg Capsule 17.2 mg PO BID RF: 0 coenzyme Q10 1 cap PO DAILY RF: 0 Discontinued lisinopril 20 mg Tablet See Rx Instructions .ROUTE .COMPLEX RF: 0 ceftriaxone 1 gram Recon Soln See Rx Instructions .ROUTE .COMPLEX RF: 0 Discharge Orders: Discharge Order (Routine); Ordered 07/03/19 Ordered By: Josue Dugan Referrals: [facility] [Outside] [facility] [Outside] Discharge Diet: Advance as tolerated Discharge Activity: Increase activity as tolerated and Oxygen as instructed Discharge Attestations Time Spent in Discharge Care*: less than 30 min Specific Discharge Activities: Specific discharge activities: discussing with adult protective caseworker/social workers/dc planners and documenting/other paperwork Status at Discharge: Cognitive status at discharge: severely impaired cognition, Behavioral status at discharge: cooperative, Functional status at discharge: bed bound Overall status at discharge: patient has a new baseline Quality Metrics Clinical Quality Measures During this hospital stay, did patient experience: None Coding Level of Care Code Acute Rail Operator for Chg Fwd Diagnoses AMS (altered mental status) R40.0 Altered mental status type: somnolence Hypernatremia E87.0 COPD (chronic obstructive pulmonary disease) J44.9 Hypothyroid E03.9 Acute kidney injury superimposed on CKD N17.9; N18.9 Pulmonary hypertension I27.20 Dementia F03.90 Bipolar disorder F31.9
== END 2019-07-03 13:50 | disposition hospice, home (50) | DRG 871 ==
LOC: ER 14:32 → ICU 20:44
PROVIDERS: Admitting Provider Student in an Organized Health Care Education/Training Program; Emergency Provider Family Medicine; PCP Internal Medicine; Visit Provider Student in an Organized Health Care Education/Training Program
DX: A41.9 Sepsis, unspecified organism (principal); R57.1 Hypovolemic shock; N39.0 Urinary tract infection, site not specified; G45.8 Other transient cerebral ischemic attacks and related syndromes; N17.9 Acute kidney failure, unspecified; E87.1 Hypo-osmolality and hyponatremia; G30.9 Alzheimer's disease, unspecified; F02.80 Dementia in other diseases classified elsewhere, unspecified severity, without behavioral disturbance, psychotic disturbance, mood disturbance, and anxiety; F31.9 Bipolar disorder, unspecified; I12.9 Hypertensive chronic kidney disease with stage 1 through stage 4 chronic kidney disease, or unspecified chronic kidney disease; N18.9 Chronic kidney disease, unspecified; I25.10 Atherosclerotic heart disease of native coronary artery without angina pectoris; Z95.5 Presence of coronary angioplasty implant and graft; J44.9 Chronic obstructive pulmonary disease, unspecified; I27.20 Pulmonary hypertension, unspecified; E03.9 Hypothyroidism, unspecified; F41.9 Anxiety disorder, unspecified; K21.9 Gastro-esophageal reflux disease without esophagitis; E78.5 Hyperlipidemia, unspecified; M81.0 Age-related osteoporosis without current pathological fracture; R41.82 Altered mental status, unspecified; I95.9 Hypotension, unspecified; Z66 Do not resuscitate; E55.9 Vitamin D deficiency, unspecified
CPT/HCPCS: 12345; 36415; 36556; 36592; 51702; 70450; 71045; 72170; 74176; 76770; 80048; 80053; 80069; 81001; 82436; 83540; 83550; 83605; 83735; 83935; 84100; 84133; 84145; 84300; 84443; 85025; 87040; 87077; 87086; 87186; 96372; 99284; J0692; J0696; J1644; J1756; J2543; J7030; J7040; J7799